=== PATIENT | male | born 1960 | race Caucasian/White ===

== ENCOUNTER 2020-01-16 18:09 | Emergency (ER) | payer BC ==
[~2020-01-16] VITALS: Ht 167.6 cm; Wt 95.3 kg
[~2020-01-16 18:09] MED LIST: INSU100V9 SQ; NOVOLOG; [UNRECOGNIZED DRUG - OTHER]
[2020-01-16 18:14] VITALS: BP_SYST 197
--- NOTE | 2020-01-16 18:18 | NUR ---
Patient to ER bed 04 to gown for evaluation. Side rails up.
--- NOTE | 2020-01-16 18:19 | NUR ---
Patient arrived in the ED c/o bilateral eye redness after working in the backyard today. Denied any chest pain or shortness of breath. Denied any fevers, chills, nausea or vomiting. Patient is alert and oriented x4, respirations even and unlabored, speaking in full sentences, and ambulating with a steady gait. VSS, pain level 4/10. Informed of the approximate wait time. Instructed to notify ED staff for any changes in condition or worsening of symptoms while waiting to be seen by an ED provider. Patient verbalized understanding.
--- NOTE | 2020-01-16 18:21 | NUR ---
MORA Mckinley at bedside examining patient.
[2020-01-16] MEDS ORDERED: TETRACAINE HCL/PF 0.5% OPHTHALMIC DROPS 4 ML OP ONE (18:30)
[2020-01-16 18:34] VITALS: BP_SYST 197
--- NOTE | 2020-01-16 18:34 | NUR ---
Patient given written and verbal discharge instructions and verbalizes understanding. ER MD discussed with patient the results and treatment provided. Patient in stable condition. ID arm band removed. No Rx given. Patient educated on pain management and to follow up with PMD. Pain Scale 0/10. Opportunity for questions provided and answered. Medication side effect fact sheet provided.
== END 2020-01-16 18:34 | disposition home or self-care (01) ==
LOC: SED 18:09
DX: H10.13 Acute atopic conjunctivitis, bilateral (principal); E11.9 Type 2 diabetes mellitus without complications
CPT/HCPCS: 99283